=== PATIENT | female | born 1985 | race Caucasian/White ===

== ENCOUNTER 2023-09-11 19:04 | Emergency (ER) | payer OTHER ==
[~2023-09-11] VITALS: Ht 182.8 cm; Wt 120.2 kg
[~2023-09-11 19:04] MED LIST: CIPRO500 MG PO
[2023-09-11] MEDS ORDERED: ELIQUIS5 M1 PO (20:05)
[2023-09-11] MEDS ORDERED: VALTREX500 MG PO (21:08)
[2023-09-11] MEDS ORDERED: Valacyclovir Hydrochloride 500 MG CAP PO ONE (21:15)
== END 2023-09-11 23:23 | disposition home or self-care (01) ==
LOC: ED 19:04
DX: B02.9 Zoster without complications (principal); Z88.1 Allergy status to other antibiotic agents; Z88.8 Allergy status to other drugs, medicaments and biological substances; Z79.2 Long term (current) use of antibiotics; Z79.899 Other long term (current) drug therapy

== ENCOUNTER → 2023-10-03 | Outpatient (CLI) | payer OTHER ==
[~2023-10-03] MED LIST changes: +ELIQUIS5 M1 PO; +VALTREX500 MG PO
== END | disposition home or self-care (01) ==
LOC: US 09-26 14:30
PROVIDERS: ATTEND Student in an Organized Health Care Education/Training Program
DX: I86.8 Varicose veins of other specified sites (principal)

== ENCOUNTER 2024-01-28 18:12 | Emergency (ER) | payer OTHER ==
[~2024-01-28] VITALS: Ht 182.8 cm; Wt 121.1 kg
[2024-01-28] MEDS ORDERED: SODIUM CHLORIDE 0.9% 1,000 ML IV ONE (19:25)
[2024-01-28] MEDS ORDERED: Ondansetron Hydrochloride 4 MG/2 ML VIAL IV ONE (19:30)
[2024-01-28 19:55] LABS: BILIRUBIN 1+ (Negative); BLOOD 3+ (Negative); CLARITY Cloudy (Clear); COLOR Dark Yellow (Yellow); GLUCOSE Negative (Negative); KETONE Trace (Negative); LEUKO ESTERASE 2+ (Negative); NITRITE Negative (Negative); PH 5.5 (4.5-8.0); SPECIFIC GRAVITY >= 1.030 (1.001-1.030)
[2024-01-28 19:57] LABS: BASO % 0.4 % (0.0-1.0); EOS # 0.1 10*3/uL (0.0-0.4); EOS % 1.3 % (1.0-4.0); HEMATOCRIT 45.9 % (37.0-47.0); LYMPH # 1.7 10*3/uL (1.3-4.4); LYMPH % 32.3 % (27.0-41.0); MEAN CORPUSCULAR HGB 30.2 pg (27.0-31.0); MEAN CORPUSCULAR HGB CONC 33.6 g/dl (33.0-37.0); MEAN PLATELET VOLUME 10.7 fl (9.6-12.3); MONO # 0.6 10*3/uL (0.1-1.0); MONO % 10.7 % (3.0-9.0); NEUT # 2.9 10*3/uL (2.3-7.9); NEUT % 55.1 % (47.0-73.0); PLATELET COUNT AUTOMATED 205 10*3/uL (130-400); WHITE BLOOD COUNT 5.2 10*3/uL (4.8-10.8)
[2024-01-28 20:24] LABS: ALKALINE PHOSPHATASE 81 U/L (46-116); BUN 11 mg/dl (9-23); CHLORIDE 105 mmol/L (98-107); POTASSIUM 3.8 mmol/L (3.4-5.1); SGPT/ALT 86 U/L (5-49); TOTAL PROTEIN 7.1 gm/dL (6.0-8.0)
[2024-01-28 20:27] LABS: BACTERIA 2+; WBC 51-100 wbc/hpf (0-5)
[2024-01-28] MEDS ORDERED: Ciprofloxacin Hydrochloride 500 MG TAB PO ONE (20:55)
[2024-01-28] MEDS ORDERED: IOHEXOL 350 MG/ML 100 ML VIAL IV ONE (21:05)
[2024-01-28] MEDS ORDERED: SODIUM CHLORIDE 0.9% 100 ML BAG IV ONE (21:05)
[2024-01-28] MEDS ORDERED: FLOMAX0.4 MG PO (22:54)
[2024-01-28] MEDS ORDERED: HYDROCODONE-AC1 EACH PO (22:55)
[2024-01-28] MEDS ORDERED: Tamsulosin Hydrochloride 0.4 MG CAP PO ONE (23:00)
[2024-01-29] MEDS ORDERED: CIPRO500 MG PO (20:33)
== END 2024-01-28 23:01 | disposition home or self-care (01) ==
LOC: ED 18:12
PROVIDERS: Nurse Practitioner Family
DX: N39.0 Urinary tract infection, site not specified (principal); Z20.822 Contact with and (suspected) exposure to COVID-19; N20.0 Calculus of kidney; R11.2 Nausea with vomiting, unspecified; R53.1 Weakness; R53.81 Other malaise; R19.7 Diarrhea, unspecified; R06.02 Shortness of breath; R42 Dizziness and giddiness; Z86.718 Personal history of other venous thrombosis and embolism; Z88.1 Allergy status to other antibiotic agents; Z88.8 Allergy status to other drugs, medicaments and biological substances; Z90.49 Acquired absence of other specified parts of digestive tract

== ENCOUNTER → 2024-02-26 | Outpatient (CLI) | payer OTHER ==
[~2024-02-26] MED LIST changes: +FLOMAX0.4 MG PO; +HYDROCODONE-AC1 EACH PO
[2024-02-26 18:31] LABS: ACT PARTIAL THROMBO TIME 25.8 SECONDS (20.0-32.1)
[2024-02-27 08:11] LABS: HBSAG Negative (Negative); HEP B CORE AB, IGM Negative (Negative); HEPATITIS C ANTIBODY Non Reactive (Non Reactive)
[2024-02-27 12:08] LABS: ANTI-DSDNA ANTIBODIES 3 IU/mL (0-9)
[2024-02-27 15:07] LABS: ALPHA-1-ANTITRYPSIN, SERUM 157 mg/dL (100-188); ANTI-SMOOTH MUSCLE ANTIBODY 6 Units (0-19)
== END | disposition home or self-care (01) ==
LOC: LAB 17:55
PROVIDERS: Student in an Organized Health Care Education/Training Program; ATTEND Family Medicine
DX: K74.00 Hepatic fibrosis, unspecified (principal)

== ENCOUNTER 2024-06-26 10:08 | Emergency (ER) | payer OTHER ==
[~2024-06-26] VITALS: Wt 113.4 kg
[2024-06-26] MEDS ORDERED: SODIUM CHLORIDE 0.9% 1,000 ML IV ONE (10:30)
[2024-06-26] MEDS ORDERED: Metoclopramide Hydrochloride 10 MG/2 ML VIAL IV ONE (10:30)
[2024-06-26] MEDS ORDERED: diphenhydrAMINE hydrochloride 50 MG/ML VIAL IV ONE (10:30)
[2024-06-26] MEDS ORDERED: FAMOTIDINE 50 ML IV ONE (10:30)
[2024-06-26 10:51] LABS: BASO % 0.2 % (0.0-1.0); EOS # 0.1 10*3/uL (0.0-0.4); EOS % 0.7 % (1.0-4.0); HEMATOCRIT 47.7 % (37.0-47.0); MEAN CELL VOLUME 91.7 fl (81.0-99.0); MEAN CORPUSCULAR HGB 30.4 pg (27.0-31.0); MEAN CORPUSCULAR HGB CONC 33.1 g/dl (33.0-37.0); MEAN PLATELET VOLUME 9.7 fl (9.6-12.3); MONO # 0.8 10*3/uL (0.1-1.0); MONO % 6.3 % (3.0-9.0); NEUT # 7.6 10*3/uL (2.3-7.9); NEUT % 57.2 % (47.0-73.0); PLATELET COUNT AUTOMATED 329 10*3/uL (130-400); RED CELL DISTRI WIDTH 12.5 % (0-14.5); WHITE BLOOD COUNT 13.3 10*3/uL (4.8-10.8)
[2024-06-26 11:10] LABS: BUN 20 mg/dl (9-23); CHLORIDE 102 mmol/L (98-107); POTASSIUM 3.9 mmol/L (3.4-5.1)
[2024-06-26] MEDS ORDERED: PEPCID20 MG PO (11:23)
[2024-06-26] MEDS ORDERED: Ondansetron4 MG PO (11:23)
== END 2024-06-26 12:02 | disposition home or self-care (01) ==
LOC: ED 10:08
PROVIDERS: Emergency Medicine
DX: R07.89 Other chest pain (principal); R11.2 Nausea with vomiting, unspecified; Z88.1 Allergy status to other antibiotic agents; Z88.8 Allergy status to other drugs, medicaments and biological substances; Z79.2 Long term (current) use of antibiotics; Z79.899 Other long term (current) drug therapy

== ENCOUNTER → 2024-08-26 | Outpatient (CLI) | payer OTHER ==
[~2024-08-26] MED LIST changes: +Ondansetron4 MG PO; +PEPCID20 MG PO
== END | disposition home or self-care (01) ==
LOC: RAD 15:35
PROVIDERS: ATTEND Family Medicine
DX: M25.561 Pain in right knee (principal)

== ENCOUNTER → 2024-09-09 | Outpatient (CLI) | payer OTHER | END | disposition home or self-care (01) | LOC: MRI 09-05 13:00 | PROVIDERS: ATTEND Family Medicine | DX: S83.241A Other tear of medial meniscus, current injury, right knee, initial encounter (principal); S83.281A Other tear of lateral meniscus, current injury, right knee, initial encounter; M25.561 Pain in right knee; X58.XXXA Exposure to other specified factors, initial encounter; Y93.89 Activity, other specified; Y92.89 Other specified places as the place of occurrence of the external cause; Y99.8 Other external cause status; M25.461 Effusion, right knee ==

== ENCOUNTER 2025-01-07 06:32 | Emergency (ER) | payer OTHER ==
[~2025-01-07] VITALS: Ht 182.8 cm; Wt 108.9 kg
[2025-01-07] MEDS ORDERED: Ondansetron Hydrochloride 4 MG/2 ML VIAL IV ONE (07:25)
[2025-01-07 07:43] LABS: BASO # 0.0 10*3/uL (0.0-0.1); BASO % 0.3 % (0.0-1.0); EOS # 0.2 10*3/uL (0.0-0.4); EOS % 2.3 % (1.0-4.0); MEAN CELL VOLUME 91.7 fl (81.0-99.0); MEAN CORPUSCULAR HGB 30.0 pg (27.0-31.0); MEAN PLATELET VOLUME 10.6 fl (9.6-12.3); MONO # 0.6 10*3/uL (0.1-1.0); MONO % 6.5 % (3.0-9.0); NEUT # 6.1 10*3/uL (2.3-7.9); NEUT % 62.5 % (47.0-73.0); NUCLEATED RED BLOOD CELL 0.0 % (0.0-0.0); NUCLEATED RED BLOOD CELL 0.0 10*3/uL (0.0-0.0); PLATELET COUNT AUTOMATED 228 10*3/uL (130-400); RED CELL DISTRI WIDTH 12.3 % (0-14.5)
[2025-01-07 08:02] LABS: BUN 10 mg/dl (9-23)
[2025-01-07 08:11] LABS: BILIRUBIN Negative (Negative); BLOOD 2+ (Negative); CLARITY Cloudy (Clear); COLOR Yellow (Yellow); KETONE Negative (Negative); LEUKO ESTERASE 2+ (Negative); NITRITE Negative (Negative); PH 6.0 (4.5-8.0); SPECIFIC GRAVITY 1.010 (1.001-1.030); UROBILINOGEN 0.2 E.U./dl (0.0-1.0)
[2025-01-07] MEDS ORDERED: POTASSIUM CHLORIDE 20 MEQ TAB PO ONE (08:20)
[2025-01-07 08:34] LABS: CALCIUM OXALATE CRYSTALS 1+
[2025-01-07 08:35] LABS: BACTERIA 3+; RBC 41-50 rbc/hpf (0-2); WBC 31-40 wbc/hpf (0-5)
[2025-01-07] MEDS ORDERED: LEVOFLOXACIN 750 MG TAB PO ONE (08:45)
[2025-01-07] MEDS ORDERED: PERCOCET 5-3251 EACH PO (09:07)
[2025-01-07] MEDS ORDERED: FLOMAX0.4 MG PO (09:07)
[2025-01-07] MEDS ORDERED: LEVOFLOXACIN500 MG PO (09:07)
[2025-01-07] MEDS ORDERED: Ondansetron4 MG PO (09:07)
== END 2025-01-07 09:15 | disposition home or self-care (01) ==
LOC: ED 06:32
PROVIDERS: Emergency Medicine
DX: N13.2 Hydronephrosis with renal and ureteral calculous obstruction (principal); Z87.442 Personal history of urinary calculi; Z88.1 Allergy status to other antibiotic agents; Z88.8 Allergy status to other drugs, medicaments and biological substances; Z79.899 Other long term (current) drug therapy

== ENCOUNTER → 2025-01-14 | Outpatient (CLI) | payer OTHER ==
[~2025-01-14] MED LIST changes: +LEVOFLOXACIN500 MG PO; +PERCOCET 5-3251 EACH PO
== END ==
LOC: LAB 08:26
PROVIDERS: ATTEND Family Medicine
DX: E83.52 Hypercalcemia (principal); E24.8 Other Cushing's syndrome

== ENCOUNTER → 2025-01-23 | Outpatient (CLI) | payer OTHER | END | disposition home or self-care (01) | LOC: NM 10:00 | PROVIDERS: ATTEND Family Medicine | DX: E21.3 Hyperparathyroidism, unspecified (principal) ==

== ENCOUNTER → 2025-01-29 | Outpatient (CLI) | payer OTHER | END | disposition home or self-care (01) | LOC: US 13:50 | PROVIDERS: ATTEND Family Medicine | DX: N94.9 Unspecified condition associated with female genital organs and menstrual cycle (principal) ==